=== PATIENT | female | born 1990 | race Caucasian/White ===

== ENCOUNTER 2017-02-05 02:18 | Emergency (ER) | payer OTHER ==
[~2017-02-05] VITALS: Ht 165.1 cm; Wt 60.0 kg
[2017-02-05 03:24] LABS: SERUM ETHYL ALCOHOL 114 mg/dL
[2017-02-05 06:01] LABS: QUANTITATIVE HCG < 4.0 MIU/ML
[2017-02-05 06:13] VITALS: BP 112/75
[2017-02-05 06:15] LABS: AMPHETAMINE NEGATIVE (500 ng/mL); BARBITURATES NEGATIVE (200 ng/mL); BENZODIAZEPINES NEGATIVE (150 ng/mL); COCAINE NEGATIVE (150 ng/mL); INTERNAL CONTROLS VALID? YES; METHADONE NEGATIVE (200 ng/mL); METHAMPHETAMINE NEGATIVE (500 ng/mL); OPIATES (MORPHINE) NEGATIVE (100 ng/mL); OXYCODONE NEGATIVE (100 ng/mL); PHENCYCLIDINE NEGATIVE (25 ng/mL); PROPOXYPHENE NEGATIVE (300 ng/mL); THC CANNABINOIDS NEGATIVE (50 ng/mL); TRICYCLIC ANTIDEPRESSANTS NEGATIVE (300 ng/mL)
[2017-02-06 10:28] LABS: TREPONEMA ANTIBODY NEGATIVE (NEGATIVE)
[2017-02-06 14:08] LABS: CHLAMYDIA TRACHOMATIS NEGATIVE; NEISSERIA GONORRHOEAE NEGATIVE
== END 2017-02-05 06:15 | disposition home or self-care (01) ==
LOC: EME 02:18
PROVIDERS: Emergency Medicine
DX: T76.21XA Adult sexual abuse, suspected, initial encounter (principal); F10.129 Alcohol abuse with intoxication, unspecified; Y90.5 Blood alcohol level of 100-119 mg/100 ml
CPT/HCPCS: 84702; 86780; 87210; 87491; 87591; 99281; 99284; G0480; J0696